=== PATIENT | male | born 1950 | race Caucasian/White ===

== ENCOUNTER → 2019-08-23 08:02 | Outpatient (CLI) | payer MEDICARE | END | disposition home or self-care (01) | LOC: D.HCCECHO 08:02 | PROVIDERS: ATTEND Internal Medicine Cardiovascular Disease | DX: I10 Essential (primary) hypertension (principal); I25.10 Atherosclerotic heart disease of native coronary artery without angina pectoris ==

== ENCOUNTER 2019-09-06 06:28 | Outpatient (CLI) | payer MEDICARE ==
[~2019-09-06] VITALS: Ht 172.7 cm; Wt 87.5 kg
--- NOTE | ~2019-09-06 | HEMODYNAMI ---
PATIENT:MARILYN BAUMAN MEDICAL RECORD: [id number] : 46 LOCATION:[facility] ADMISSION DATE: 09/06/19 Generatedon:09/06/20199:41 Patient name: MARILYN BAUMAN Patient #: [id number] SSN: [id number] : 1950 Date of study: 09/06/2019 Page: Of Hemodynamic Procedure Report Patient Data Patient Demographics Procedure consent was obtained First Name: MARILYN Gender: Male Last Name: MERNA : 1950 Patient #: [id number] Age: 69 year(s) Race: Unknown SSN: [id number] Additional ID: [id number] Contact details [address]: [address] [place], [place] [address] State: [place] City: [place] Zip code: [address] Past Medical History Allergies: No known allergies Admission Admission Data Admission Date: 09/06/2019 Admission Time: 6:28 Lab Results Lab Result Date: 09/06/2019 Lab Result Time: 0:00 Biochemistry Name Units Result Min Max BUN mg/dl 17 --(---*)-- 7 18 Creatinine mg/dl 1 --(--*-)-- 0.6 1.3 eGFR ml/min 78 *-(----)-- 90 120 NONAFRICAN CBC Name Units Result Min Max Hematocrit % 40.9 -*(----)-- 42 54 Hemoglobin g/dl 13.6 --(*---)-- 13.5 17.5 Procedure Procedure Types Cath Procedure Diagnostic Procedure LHC LH w/Coronaries Sedation Charges Moderate Sedation up to 30 minutes PCI Procedure Coronary Stent Coronary Stent Initial Procedure Description Procedure Date Procedure Date: 09/06/2019 Procedure Start Time: 9:06 Procedure End Time: 9:38 Procedure Staff Name Function See Schilling MD Performing Physician Krunal Lr RN Nurse Muriel Mack RT Monitor Asha Sarmiento RT Scrub Procedure Data Cath Procedure Fluoroscopy Diagnostic fluoroscopy Total fluoroscopy Time: 5.8 time: 5.8 min min Diagnostic fluoroscopy Total fluoroscopy dose: 910 dose: 910 mGy mGy Contrast Material Contrast Material Type Amount (ml) Isovue 300 97 Entry Location Entry Primary Successful Side Size Upsize Upsize Entry Closure Succes sful Closure Location (Fr) 1 (Fr) 2 (Fr) Remarks Device Remarks Femoral Right 5 Fr 6 Fr Exoseal artery Short Estimated blood loss: 10 ml Diagnostic catheters Device Type Used For End Catheter Placement MULTIPACK JL 4.0 5Fr Left Coronary catheter Angiography MULTIPACK 3DRC 5Fr Right Coronary catheter Angiography MULTIPACK Pigtail 5 Fr LV Angiography catheter Procedure Complications No complications Procedure Medications Medication Administration Route Dosage Oxygen etCO2 Nasal cannula 2 l/min Lidocaine 2% added to field 20 Heparin Flush Bag added to field 2 bags (1000units/500ml NS) 0.9% NaCl I.V. 100 ml/hr Versed I.V. 1 mg Fentanyl I.V. 50 mcg Versed I.V. 1 mg Fentanyl I.V. 50 mcg Heparin Bolus I.V. 8500 units Plavix P.O. 600 mg Hemodynamics Rest HGB: 13.6 (g/dl) Heart Rate: 65 (bpm) Pressure Samples Time Site Value (mmHg) Purpose Heart Use Rate(bpm) 9:16 LV 122/-5,7 Snapshot 67 9:17 AO 120/60(86) Pullback 63 9:17 LV 117/-1,8 Pullback 63 Gradients Valve Time Site 1 Site 2 Mean SEP/DFP Peak To Heart Use (mmHg) (sec/min) Peak Rate (mmHg) (bpm) Aortic 9:17 LV AO 0 3 0 63 117/-1,8 120/60(86) Calculations Valve P-P Mean Valve Index Valve Source Name Gradient Area Flow (cm2) Aortic 0 0 0 0 Snapshots Pre Cath Intra NCS Post Cath Vital Signs Time Heart Resp SPO2 etCO2 NIBP (mmHg) Rhythm Pain Sedation Rate (ipm) (%) (mmHg) Status Level (bpm) 8:54:23 69 15 98 0 145/70(129) NSR 0 (11) 10(A) , No pain 8:58:37 65 15 98 36.7 134/81(99) NSR 0 (11) 10(A) , No pain 9:02:51 61 16 97 0 118/81(97) NSR 0 (11) 10(A) , No pain 9:07:58 61 18 97 0 122/76(92) NSR 0 (11) 9(A) , No pain 9:12:10 62 11 95 34.4 136/78(98) NSR 0 (11) 9(A) , No pain 9:16:26 67 11 95 0 122/78(106) NSR 0 (11) 9(A) , No pain 9:20:40 64 13 98 16.4 127/74(90) NSR 0 (11) 9(A) , No pain 9:24:54 65 14 94 39.7 131/75(98) NSR 0 (11) 9(A) , No pain 9:29:10 64 10 93 0 147/76(125) NSR 0 (11) 10(A) , No pain 9:33:26 66 12 93 32.2 138/80(119) NSR 0 (11) 10(A) , No pain Medications Time Medication Route Dose Verified Delivered Reason Notes Effectiveness by by 8:53:21 Oxygen etCO2 2 See Buffie used for Nasal l/min Sohan Lr RN procedure cannula 8:53:27 Lidocaine 2% added 20ml See See for local to vial Sohan Schilling MD anesthetic field 8:53:33 Heparin Flush added 2 See See used for Bag to bags Sohan Schilling MD procedure (1000units/500ml field NS) 8:53:42 0.9% NaCl I.V. 100 See Buffie Per physician ml/hr Sohan Lr RN 9:03:15 Versed I.V. 1 mg See Buffie for sedation Sohan Lr RN 9:03:20 Fentanyl I.V. 50 See Buffie for sedation mcg Sohan Lr RN 9:10:04 Versed I.V. 1 mg See Buffie for sedation Sohan Lr RN 9:19:59 Fentanyl I.V. 50 See Buffie for sedation mcg Sohan Lr RN 9:21:07 Heparin Bolus I.V. 8500 See Buffie for verifi ed units Sohan Lr RN anticoagulation with dr schilling 9:38:10 Plavix P.O. 600 See Buffie for mg Sohan Lr RN antiplatelet therapy Procedure Log Time Note 8:38:10 Lab Result : BUN 17 mg/dl 8:38:10 Lab Result : Hemoglobin 13.6 g/dl 8:38:10 Lab Result : Hematocrit 40.9 % 8:38:10 Lab Result : Creatinine 1 mg/dl 8:38:10 Lab Result : eGFR NONAFRICAN 78 ml/min 8:38:25 Risk of Mortality: 0.1 8:38:29 Risk of blood transfusion: 0.5 8:38:34 Risk of PRABHJOT: 0.2 8:38:49 Stress Test: yes; abnormal INFERIORLY 8:38:55 Lab results completed and on chart. 8:39:19 Patient allergic to No known allergies 8:42:32 ACC Patient presents with Stable Angina CCS Anginal Class 3--Marked limitation of physical activity, angina occurs with ordinary activity.. 8:42:37 Procedure Status Elective Heart Cath (OP). 8:43:17 Krunal Lr RN sent for patient. Start room use. 8:43:20 Time tracking: Regular hours (M-F 7:00 - 5:00) 8:43:28 Plan of Care:Hemodynamics will remain stable., Cardiac rhythm will remain stable., Comfort level will be maintained., Respiratory function will remain adequate., Patient/ family verbilizes understanding of procedure., Procedure tolerated without complication., Recovers from procedure without complications.. 8:44:03 Diagnostic Cath Status : Elective 8:48:59 Patient received from Pre/Post Procedure Room to CCL 1 Alert and oriented. Tansferred to table in Supine position. 8:53:09 Vital chart was started 8:53:21 Oxygen 2 l/min etCO2 Nasal cannula was administered by Krunal Lr RN; used for procedure; Verbal order read back and verified. 8:53:27 Lidocaine 2% 20ml vial added to field was administered by See Schilling MD; for local anesthetic; Verbal order read back and verified. 8:53:33 Heparin Flush Bag (1000units/500ml NS) 2 bags added to field was administered by See Schilling MD; used for procedure; Verbal order read back and verified. 8:53:42 0.9% NaCl 100 ml/hr I.V. was administered by Krunal Lr RN; Per physician; Verbal order read back and verified. 8:56:59 Signed procedure consent form obtained from patient. 8:57:01 Warm blankets applied, and galilea hugger turned on for patient comfort. 8:57:02 Correct patient and procedure confirmed by team. 8:57:03 ECG and BP/O2 sat monitors applied to patient. 8:57:43 Baseline sample Acquired. 8:57:52 Rhythm: sinus rhythm 8:57:55 Full Disclosure recording started 8:57:56 8:58:05 H&P Date Dictated: 09/06/2019 H&P Addendum completed by physician on day of procedure. (MUST COMPLETE FOR ALL OUTPATIENTS), New H&P dictated by physician.. 8:58:07 Pre-procedure instructions explained to patient. 8:58:08 Pre-op teaching completed and patient verbalized understanding. 8:58:11 Family in patients room. 8:58:14 Patient NPO since Midnight. 8:58:25 Is the patient allergic to Iodine/contrast media? No. 8:58:30 Was the patient premedicated? Yes 8:58:35 Is patient on blood thinner?No 8:58:41 Patient diabetic? No. 8:58:45 ----Pre-sedation anethsthesia assessment.---- 8:59:03 Previous problem with sedation/anesthesia? No ? 8:59:10 Snore? Yes 8:59:20 Sleep apnea? No 8:59:31 Deviated septum? No 8:59:34 Opens mouth fully? Yes 8:59:37 Sticks out tongue? Yes 8:59:41 Airway obstruction? No ? 8:59:48 Dentures? Yes IN TIGHT 8:59:58 Right groin area was prepped with chlora-prep and draped in sterile fashion 9:00:01 Alarms reviewed by R. N. 9:00:02 Sharps counted by scrub and verified by R.N. 9:00:09 Use device set Femoral Dx 9:00:11 ACIST Syringe (70160) opened to sterile field. 9:00:12 Bag Decanter (2002S) opened to sterile field. 9:00:13 Medline Cath Pack ([id number]) opened to sterile field. 9:00:22 ACIST Hand Control (54590) opened to sterile field. 9:00:22 ACIST Manifold (69649) opened to sterile field. 9:00:24 DIAGNOSTIC Multipack 5Fr catheter set (MJ5409) opened to sterile field. 9:00:25 Tegaderm 4 x 4 (1626W) opened to sterile field. 9:00:30 SHEATH 5FR Sublette (XCM572) opened to sterile field. 9:00:31 EMERALD Guide Wire (878-167) opened to sterile field. 9:02:05 Pre procedure: right dorsailis pedis pulse 1+ Palpable, but thready & weak; easily obliterated 9:02:20 IV patent on arrival in left forearm with 0.9% NaCl at KVO. 9:02:27 Physician arrived 9:02:28 --------ALL STOP TIME OUT------ 9:02:29 Final Timeout: patient, procedure, and site verified with staff and physician. All members of the team are in agreement. 9:02:32 Right groin site verified by team. 9:02:38 Fire Safety Assessment: A--An alcohol-based skin anteseptic being used preoperatively., C--Open oxygen or nitrous oxide is being used., D--An ESU, laser, or fiber-optic light is being used. 9:02:43 Physical assessment completed. ASA score P 2 - A patient with mild systemic disease as per See Schilling MD. 9:02:49 2) 60-89 Mildly reduced kidney function, and other findings (as for stage 1) point to kidney disease. 9:02:54 Maximum allowable contrast dose (3.7 X eGFR X 0.75)216 ml. 9:03:02 Sedation plan: IV Moderate Sedation Medication:Versed, Fentanyl 9:03:15 Versed 1 mg I.V. was administered by Krunal Lr RN; for sedation; Verbal order read back and verified. 9:03:20 Fentanyl 50 mcg I.V. was administered by Krunal Lr RN; for sedation; Verbal order read back and verified. 9:03:57 Zero performed for pressure channel P1 9:06:12 Procedure started. 9:06:39 Local anesthetic to right femoral artery with Lidocaine 2% by See Schilling MD.INITIAL ACCESS ONLY 9:07:56 A 5 Fr sheath was inserted into the Right Femoral artery 9:09:42 A MULTIPACK JL 4.0 5Fr catheter was advanced over the wire and used for Left Coronary Angiography. 9:10:04 Versed 1 mg I.V. was administered by Krunal Lr RN; for sedation; Verbal order read back and verified. 9:10:41 LCA angiography performed. 9:10:45 Injector settings: Ml/sec: 3, Volume: 6, 9:12:57 Catheter removed. 9:13:05 A MULTIPACK 3DRC 5Fr catheter was advanced over the wire and used for Right Coronary Angiography. 9:14:17 RCA angiography performed. 9:14:34 Injector settings: Ml/sec: 3, Volume: 6, 9:14:58 Catheter removed. 9:15:15 A MULTIPACK Pigtail 5 Fr catheter was advanced over the wire and used for LV Angiography. 9:15:31 Injector settings: Ml/sec: 5, Volume: 15, 9:15:35 LV gram done using TOBIAS 9:16:16 LV hemodynamics recorded. 9:17:35 EF : 45 % 9:17:48 Catheter removed. 9:17:50 Proceeding to intervention. 9:18:41 Asahi Minamo 300cm wire opened to sterile field. 9:18:43 TUBING High Pressure Extension Tubing (Soahn) ([id number]) opened to sterile field. 9:18:44 INFLATOR Merit BasixCompak (MR4293) opened to sterile field. 9:18:45 SHEATH 6FR Sublette (VPT787) opened to sterile field. 9:19:05 Sheath upsized to a 6 Fr Short. 9:19:11 ACC Pre-intervention HIMANSHU Flow is 3. 9:19:29 Pre PCI Site: [place] pLAD has 90% stenosis. 9:19:41 GUIDE 6FR XBLAD 3.5 catheter ([id number]) opened to sterile field. 9:19:50 6 Fr XBLAD3.5 guide catheter was inserted over the wire 9:19:59 Fentanyl 50 mcg I.V. was administered by Krunal Lr RN; for sedation; Verbal order read back and verified. 9:20:43 [id number] wire advanced. 9:21:07 Heparin Bolus 8500 units I.V. was administered by Krunal Lr RN; for anticoagulation; verified with dr schilling Verbal order read back and verified. 9:24:24 Wire advanced across lesion. 9:27:53 Place stent Inflation Number: 1 A OSMANY OTW 3.0 x 12 stent ([id number]) was prepped and advanced across the Prox LAD . The stent was deployed at 14 DANICA for 0:30 (min:sec) . 9:29:37 Inflation number: 2 The stent balloon was then re-inflated across the Prox LAD to 16 DANICA for 0:00 (min:sec) . 9:31:02 Stent catheter was removed intact over wire. 9:31:05 ACC Post-intervention HIMANSHU Flow is 3. 9:31:16 Post PCI Site: [place] pLAD has 0% stenosis. 9:31:49 Wire removed. 9:31:50 Guide catheter removed. 9:32:00 EXOSEAL 6Fr (EX600) opened to sterile field. 9:32:18 Sheath removed intact; hemostasis achieved with Exoseal to the Right Femoral artery. 9:33:03 Procedure ended.(Physican Out) 9:33:37 Contrast amount:Isovue 300 97ml. 9:33:41 Maximum allowable dose exceeded? No. 9:33:52 Fluoroscopy time 05.80 minutes. 9:34:01 Flurop Dose total: 910 9:34:01 Fluoroscopy dose: 910 mGy 9:34:13 Dose Area Product 25080 mGy/cm. 9:34:15 Sharps counted by scrub and verified by R.N. 9:34:17 Insertion/operative site no bleeding no hematoma. 9:34:23 Post-op/insertion site Right Femoral artery dressed using a 4 x 4 and Tegaderm. 9:34:30 Post right femoral artery:stable 9:34:33 Post Procedure Pulses reassessed and unchanged 9:34:40 Post-procedure physical assessment completed. ASA score P 2 - A patient with mild systemic disease as per See Schilling MD. 9:34:45 Post procedure rhythm: unchanged. 9:34:49 Estimated blood loss: 10 ml 9:34:51 Post procedure instruction explained to patient.Patient verbalizes understanding. 9:34:53 Patient needs reinforcement of post procedure teaching. 9:35:23 Procedure type changed to Cath procedure, Diagnostic procedure, LHC, [facility] w/Coronaries, Sedation Charges, Moderate Sedation up to 30 minutes, PCI procedure, Coronary Stent, Coronary Stent Initial 9:35:26 Procedure and supply charges have been captured, reviewed, submitted and are correct. 9:36:08 Procedure Complication : No complications 9:36:11 Vital chart was stopped 9:36:15 [facility] Findings: MVD- PCI performed (see procedure note) 9:36:19 Operative report dictated upon procedure completion. 9:36:20 See physician's report for complete and final results. 9:36:22 Report given to Pre/Post Procedure Room. 9:36:27 Patient transfered to Pre/Post Procedure Room with Stretcher. 9:37:31 ACT drawn and resulted at out of range high seconds. (normal therapeutic range 180-240 seconds). 9:38:10 Plavix 600 mg P.O. was administered by Krunal Lr RN; for antiplatelet therapy; Verbal order read back and verified. 9:38:51 Procedure ended. 9:38:51 Full Disclosure recording stopped 9:39:00 ACC-PCI Only Patient was given prescriptions, or instructed by See Schilling MD to start/continue the following medications upon discharge: Plavix 9:39:02 End room use (Document Last) Intervention Summary Intervention Notes Time ActionType Lesion and Equipment Action# Pressure Duration Attributes Used 9:27:53 Place stent Prox LAD OSMANY OTW 3.0 1 14 00:30 x 12 stent ([id number]) 9:29:37 Reinflate Prox LAD OSMANY OTW 3.0 2 16 00:00 stent x 12 stent balloon ([id number]) Device Usage Item Name Manufacture Quantity Catalog Hospital Part Current Mini mal Lot# / Number Charge Number Stock Stock Serial# Code ACIST Syringe Acist 1 62574 038538 065541 086832 20 (66232) [employer] Bag Decanter Microtek 1 777553 45723 461237 5 () Medical Inc. Medline Cath Medline 1 [id number] 542001 92665 325147 5 Pack ([id number]) ACIST Hand Acist 1 98074 424289 888909 229904 5 Control Medical (89842) Modulus Inc ACIST Acist 1 09816 414265 724941 835066 5 WaveConnex Medical (48595) Systems Inc DIAGNOSTIC Cardinal 1 VY6481 264328 97169 580573 30 Multipack 5Fr Health catheter set (DU4489) Tegaderm 4 x 3M 1 1626W 393271 599532 607737 5 4 (1626W) SHEATH 5FR Terumo 1 PIG819 171831 942056 682500 5 Sublette (VIR187) EMERALD Guide Cardinal 1 502-455 222749 162059 762407 5 Wire Health (502-455) MULTIPACK JL Cardinal 1 833808 5 4.0 5Fr Health catheter MULTIPACK Cardinal 1 393222 5 3DRC 5Fr Health catheter MULTIPACK Cardinal 1 137508 5 Pigtail 5 Fr Health catheter [facility] Intecc 1 [id number] 132706 9578862 052483 0 300cm wire TUBING High Merit 1 [id number] 520437 33302 823042 10 Pressure Medical Extension Tubing (Sohan) ([id number]) INFLATOR Merit 1 YQ1327 899410 774945 355067 15 Merit Medical BasixCompak (RT9256) SHEATH 6FR Terumo 1 YBG844 501167 923332 965146 40 Sublette (ZWN517) GUIDE 6FR Cardinal 1 09508527 815930 338262 402557 10 XBLAD 3.5 Health catheter (66037445) OSMANY OTW 3.0 Medtronic 1 [id number] 572483 9489871 858023 5 [id number] x 12 stent ([id number]) EXOSEAL 6Fr Cardinal 1 EX600 865843 643842 827999 10 (EX600) Health Signature Audit [place] Stage Time Signature Unsigned Intra-Procedure 09/06/2019 Muriel 9:40:13 AM Frederick RT(R) (CV) Intra-Procedure 09/06/2019 Krunal Lr RN 9:40:44 AM Intra-Procedure 09/06/2019 See Schilling MD 9:41:16 AM [facility] [address] [place] [address]
[~2019-09-06 06:28] MED LIST: BAYER CHEWABLE81 MG PO; COZAAR50 MG PO; LIPITOR10 MG PO
[2019-09-06 07:07] VITALS: BP 117/68; Ht 172.7 cm; Wt 87.5 kg
[2019-09-06 07:42] LABS: ALT (SGPT) 28 U/L (10-68); CALC OSMOLALITY 276 mosm/kg (275-300); CALCIUM 8.8 mg/dL (8.5-10.1); CARBON DIOXIDE 26.4 mmol/L (21.0-32.0); CHLORIDE - SERUM 103 mmol/L (98-107); CHOL - HDL RATIO 4.2 ratio (2.3-4.9); CHOLESTEROL, TOTAL 144 mg/dL (0-200); GLUCOSE 110 mg/dL (74-106); HDL CHOLESTEROL 34 mg/dL (32-96); LDL CHOLESTEROL 79 mg/dL (0-100); LDL-HDL RATIO 2.3 ratio (1.5-3.5); POTASSIUM - SERUM 4.1 mmol/L (3.5-5.1); SODIUM 137 mmol/L (136-145); TRIGLYCERIDE 159 mg/dL (30-200); UREA NITROGEN 17 mg/dL (7-18); eGFR NON AFRICAN AMERICAN 78 mL/min (90-120)
[2019-09-06 08:09] LABS: BASOPHILS 0.7 % (0-2); EOSINOPHILS 3.1 % (0-7); HEMATOCRIT 40.9 % (42.0-54.0); HEMOGLOBIN 13.6 g/dL (13.5-17.5); IMMATURE GRANULOCYTES 3.3 % (0-5); LYMPHOCYTES 27.9 % (15-50); MCH 31.9 pg (26.0-34.0); MCHC 33.3 g/dL (31.0-37.0); MCV 95.8 fL (80.0-100.0); MEAN PLATELET VOLUME 9.9 fL (7.4-10.4); MONOCYTES 7.6 % (2-11); NEUTROPHILS 57.4 % (40-80); PLATELET COUNT 303 10x3/uL (130-400); RBC 4.27 10x6/uL (4.20-6.10); RDW 13.1 % (11.5-14.5)
--- NOTE | 2019-09-06 09:50 | NUR ---
REC TO ROOM VIA STRETCHER FROM ALCOHOL RUBBER. MONITORING INITIATED. R GROIN TEGADERM AND 4X4 CLEAN DRY INTACT. GROIN SOFT, NO S/S BLEEDING OR HEMATOMA. DR ZABALA PRECEDED PT TO ROOM TO SPEAK W FAMILY.
[2019-09-06] MEDS ORDERED: PLAVIX75 MG PO (10:01)
--- NOTE | 2019-09-06 10:30 | NUR ---
R GROIN CDI, NO S/S BLEEDING OR HEMATOMA. BP 129/74, SR 62, SAT 100% RR 12.
--- NOTE | 2019-09-06 11:00 | NUR ---
R GROIN SOFT, NO S/S BLEEDING OR HEMATOMA. PPP. RUTH ANN SIPS OF WATER. INSTRUCTED TO KEEP HEAD ON PILLOW AND LEG STILL AND STRAIGHT FOR REMAINDER OF RECOVERY TIME. VERBALIZES UNDERSTANDING.
--- NOTE | 2019-09-06 11:30 | NUR ---
R GROIN SOFT, NO S/S BLEEDING OR HEMATOMA. PPP. BP 113/63, SB 56.
--- NOTE | 2019-09-06 12:00 | NUR ---
R GROIN SOFT, NO S/S BLEEDING OR HEMATOMA. PPP. BP 111/69, SB 55, RR 12, SAT 100% RA.
--- NOTE | 2019-09-06 12:30 | NUR ---
R GROIN REMAINS SOFT, NONTENDER. NO S/S BLEEDING OR HEMATOMA. PPP. BP 109/66, SR 61.
--- NOTE | 2019-09-06 13:00 | NUR ---
R GROIN CDI, SOFT. NO S/S BLEEDING OR HEMATOMA. HOB RAISED FOR PT COMFORT. SANDWICH AND SODA PROVIDED.
--- NOTE | 2019-09-06 13:30 | NUR ---
REQ ICE CREAM. R GROIN REMAINS SOFT, NO S/S BLEEDING OR HEMATOMA.
--- NOTE | 2019-09-06 13:45 | NUR ---
IV DC, TIP INTACT. R GROIN REMAINS SOFT, NO S/S BLEEDING OR HEMATOMA. MONITORING DC. DRESSING W FAMILY HELP./
--- NOTE | 2019-09-06 13:50 | NUR ---
AMBULATED TO REST ROOM INDEPENDENTLY TO VOID BLADDER. BACK IN ROOM, DC INSTRUCTIONS REVIEWED W PT AND FAMILY. HAS PRESCRIPTION FOR PLAVIX AND VERBALIZES UNDERSTANDING TO FILL RX AND BEGIN TAKING TOMORROW.
--- NOTE | 2019-09-06 14:05 | NUR ---
DC HOME VIA WHEELCHAIR TO PRIVATE VEHICLE WITH FAMILY. PT HAS ALL BELONGINGS.
== END 2019-09-06 14:00 | disposition home or self-care (01) ==
LOC: D.CATH 06:28
PROVIDERS: ATTEND Internal Medicine Cardiovascular Disease
DX: I25.119 Atherosclerotic heart disease of native coronary artery with unspecified angina pectoris (principal); I10 Essential (primary) hypertension; E78.5 Hyperlipidemia, unspecified
CPT/HCPCS: 93458; C9600

== ENCOUNTER → 2020-11-10 09:05 | Outpatient (CLI) | payer MEDICARE ==
[2019-09-06 07:07] VITALS: BMI 29.3
[~2020-11-10 09:05] MED LIST changes: +PLAVIX75 MG PO
== END | disposition home or self-care (01) ==
LOC: D.HCCARDIO 09:05
PROVIDERS: ATTEND Internal Medicine Cardiovascular Disease
DX: I25.10 Atherosclerotic heart disease of native coronary artery without angina pectoris (principal)

== ENCOUNTER 2020-11-13 07:26 | Day surgery (SDC) | payer MEDICARE ==
[~2020-11-13] VITALS: Ht 172.7 cm; Wt 93.8 kg
--- NOTE | ~2020-11-13 | HEMODYNAMI ---
PATIENT:MARILYN BAUMAN MEDICAL RECORD: [id number] : 46 LOCATION:[facility] ADMISSION DATE: 11/13/20 Generatedon:110:50 Patient name: MARILYN BAUMAN Patient #: [id number] SSN: [id number] : 1950 Date of study: 11/13/2020 Page: Of Hemodynamic Procedure Report Patient Data Patient Demographics Procedure consent was obtained First Name: MARILYN Gender: Male Last Name: MERNA : 1950 Patient #: [id number] Age: 70 year(s) Race: SSN: [id number] Additional ID: [id number] Contact details [address]: [address] [place] [address] State: [place] City: [place] Zip code: [address] Past Medical History Performed procedures and imaging results Date Procedure Procedure Results Comments 11/10/2020 Stress testing Positive->Intermediate with SPECT MPI risk Allergies: No known allergies Admission Admission Data Admission Date: 11/13/2020 Admission Time: 7:26 Admit Source: Other Lab Results Lab Result Date: 11/13/2020 Lab Result Time: 0:00 Biochemistry Name Units Result Min Max BUN mg/dl 23 --(----)-* 7 18 Creatinine mg/dl 1 --(--*-)-- 0.6 1.3 eGFR ml/min 78 *-(----)-- 90 120 NONAFRICAN CBC Name Units Result Min Max Hematocrit % 43.5 --(*---)-- 42 54 Hemoglobin g/dl 15 --(-*--)-- 13.5 17.5 Procedure Procedure Types Cath Procedure Diagnostic Procedure LHC LH w/Coronaries Sedation Charges Moderate Sedation 25-39 minutes Procedure Description Procedure Date Procedure Date: 11/13/2020 Procedure Start Time: 10:19 Procedure End Time: 10:47 Procedure Staff Name Function See Parry MD Performing Physician Georgette Holland RT Monitor Zunilda Daniel RT Scrub Max Hall RN Nurse Procedure Data Cath Procedure Fluoroscopy Diagnostic fluoroscopy Total fluoroscopy Time: 4.4 time: 4.4 min min Diagnostic fluoroscopy Total fluoroscopy dose: 581 dose: 581 mGy mGy Contrast Material Contrast Material Type Amount (ml) Visipaque 320 72 Entry Location Entry Primary Successful Side Size Upsize Upsize Entry Closure Succes sful Closure Location (Fr) 1 (Fr) 2 (Fr) Remarks Device Remarks Femoral Right 5 Fr 6 Fr Exoseal artery Short Estimated blood loss: 5 ml Diagnostic catheters Device Type Used For End Catheter Placement MULTIPACK JL 4.0 5Fr Procedure catheter MULTIPACK 3DRC 5Fr Procedure catheter MULTIPACK Pigtail 5 Fr Procedure catheter Procedure Complications No complications Procedure Medications Medication Administration Route Dosage 0.9% NaCl I.V. 100 ml/hr Oxygen etCO2 Nasal cannula 3 l/min Heparin Flush Bag added to field 2 bags (1000units/500ml NS) Lidocaine 2% added to field 20 Versed I.V. 1 mg Fentanyl I.V. 50 mcg Versed I.V. 0.5 mg Versed I.V. 0.5 mg Heparin Bolus I.V. 9000 units Hemodynamics Rest HGB: 15 (g/dl) Heart Rate: 62 (bpm) Pressure Samples Time Site Value (mmHg) Purpose Heart Use Rate(bpm) 10:29 LV 138/-4,-1 Snapshot 67 Gradients Valve Time Site Site Mean SEP/DFP Peak To Heart Use 1 2 (mmHg) (sec/min) Peak Rate (mmHg) (bpm) Aortic 10:30 LV AO 58 Snapshots Pre Cath Intra NCS Post Cath Vital Signs Time Heart Resp SPO2 etCO2 NIBP (mmHg) Rhythm Pain Sedation Rate (ipm) (%) (mmHg) Status Level (bpm) 9:59:00 60 25 30 164/94(119) NSR 0 (11) 10(A) , No pain 10:03:22 60 13 36.8 166/86(136) NSR 0 (11) 10(A) , No pain 10:07:40 59 15 100 35.3 159/94(121) SB 0 (11) 10(A) , No pain 10:12:00 55 12 99 0 162/89(112) SB 0 (11) 9(A) , No pain 10:16:20 58 11 94 15 160/99(114) SB 0 (11) 9(A) , No pain 10:21:42 48 11 96 42.8 145/74(113) SB 0 (11) 9(A) , No pain 10:26:00 59 11 97 24.8 164/89(118) NSR 0 (11) 9(A) , No pain 10:30:24 57 13 98 15.7 156/92(126) NSR 0 (11) 9(A) , No pain 10:34:42 58 13 99 0 148/87(121) NSR 0 (11) 9(A) , No pain 10:39:02 59 13 95 31.5 155/86(130) NSR 0 (11) 9(A) , No pain 10:43:22 56 13 94 30 155/78(114) NSR 0 (11) 9(A) , No pain 10:47:47 51 12 100 21 151/86(106) NSR 0 (11) 10(A) , No pain Medications Time Medication Route Dose Verified Delivered Reason Notes Effectiveness by by 9:58:20 0.9% NaCl I.V. 100 See Max used for ml/hr Sohan Hall special procedure tech 9:58:30 Oxygen etCO2 3 See Max used for Nasal l/min Sohan Hall RN procedure cannula 9:58:40 Heparin Flush added 2 See Max used for Bag to bags Sohan Hall RN procedure (1000units/500ml field NS) 9:58:50 Lidocaine 2% added 20ml See Max for local to vial Sohan Hall RN anesthetic field 10:09:06 Versed I.V. 1 mg See Max for sedation Sohan Hall RN 10:09:14 Fentanyl I.V. 50 See Max for sedation mcg Sohan Hall RN 10:21:46 Versed I.V. 0.5 See Max for sedation mg Sohan Hall RN 10:33:22 Versed I.V. 0.5 See Max for sedation mg Sohan Hall RN 10:34:03 Heparin Bolus I.V. 9000 See Max for units Sohan Hall RN anticoagulation Procedure Log Time Note 9:33:56 Diagnostic Cath Status : Elective 9:48:00 Max Hall RN sent for patient. Start room use. 9:49:37 Informed consent obtained and on chart 9:49:54 Admit Source: Other 9:49:56 ACC Patient presents with Stable Angina CCS Anginal Class 2--Slight limitation of ordinary activity. 9:49:59 Procedure Status Elective Heart Cath (OP). 9:50:01 Time tracking: Regular hours (M-F 7:00 - 5:00) 9:50:05 Plan of Care:Hemodynamics will remain stable., Cardiac rhythm will remain stable., Comfort level will be maintained., Respiratory function will remain adequate., Patient/ family verbilizes understanding of procedure., Procedure tolerated without complication., Recovers from procedure without complications.. 9:50:08 Pre-procedure instructions explained to patient. 9:50:08 Pre-op teaching completed and patient verbalized understanding. 9:50:16 H&P Date Dictated: 11/03/2020 Within 30 days and on chart.. 9:50:18 Family in waiting room. 9:50:19 Patient NPO since Midnight. 9:50:24 Alarms reviewed by R. N. 9:50:25 Sharps counted by scrub and verified by R.N. 9:52:06 Lab Result : Hemoglobin 15 g/dl 9:52:06 Lab Result : Hematocrit 43.5 % 9:52:06 Lab Result : BUN 23 mg/dl 9:52:06 Lab Result : Creatinine 1 mg/dl 9:52:06 Lab Result : eGFR NONAFRICAN 78 ml/min 9:52:52 Lab results completed and on chart. 9:53:25 Stress Test: yes; abnormal ANTERIOR, APICAL 9:53:32 Patient received from Pre/Post Procedure Room to CCL 1 Alert and oriented. Tansferred to table in Supine position. 9:53:34 Warm blankets applied, and galilea hugger turned on for patient comfort. 9:53:34 Correct patient and procedure confirmed by team. 9:53:35 ECG and BP/O2 sat monitors applied to patient. 9:53:36 Full Disclosure recording started 9:53:43 Patient allergic to No known allergies 9:54:00 Is the patient allergic to Iodine/contrast media? No. 9:54:01 Was the patient premedicated? Yes 9:54:02 Is patient on blood thinner?No 9:54:03 Patient diabetic? No. 9:54:05 If diabetic: On Metformin? N/A 9:54:07 ----Pre-sedation anethsthesia assessment.---- 9:54:10 Previous problem with sedation/anesthesia? No ? 9:57:49 Vital chart was started 9:58:20 0.9% NaCl 100 ml/hr I.V. was administered by Max Hall RN; used for procedure; Verbal order read back and verified. 9:58:30 Oxygen 3 l/min etCO2 Nasal cannula was administered by Max Hall RN; used for procedure; Verbal order read back and verified. 9:58:40 Heparin Flush Bag (1000units/500ml NS) 2 bags added to field was administered by Max Hall RN; used for procedure; Verbal order read back and verified. 9:58:50 Lidocaine 2% 20ml vial added to field was administered by Max Hall RN; for local anesthetic; Verbal order read back and verified. 10:03:41 Snore? Yes 10:03:42 Sleep apnea? No 10:03:43 Deviated septum? No 10:03:44 Opens mouth fully? Yes 10:03:45 Sticks out tongue? Yes 10:03:47 Airway obstruction? No ? 10:03:50 Dentures? Yes ? 10:03:54 Baseline sample Acquired. 10:03:57 Rhythm: sinus rhythm 10:04:06 Pre procedure: right dorsailis pedis pulse 2+ Normal; easily identifiable; not easily obliterated 10:04:08 Patient pain scale 0/10 ?. 10:04:14 IV patent on arrival in left antecubital with 0.9% NaCl at O. 10:04:20 Right groin area was prepped with chlora-prep and draped in sterile fashion 10:04:26 Use device set Femoral Dx 10:04:28 ACIST Syringe (03122) opened to sterile field. 10:04:28 Bag Decanter () opened to sterile field. 10:04:29 Medline Cath Pack ([id number]) opened to sterile field. 10:04:30 ACIST Hand Control (52238) opened to sterile field. 10:04:31 ACIST Manifold (09114) opened to sterile field. 10:04:31 DIAGNOSTIC Multipack 5Fr catheter set ([id number]) opened to sterile field. 10:04:33 SHEATH 5FR Blue River (QAR900) opened to sterile field. 10:04:33 EMERALD Guide Wire (850-273) opened to sterile field. 10:04:34 Tegaderm 4 x 4 (1626W) opened to sterile field. 10:08:37 --------ALL STOP TIME OUT------ 10:08:38 Final Timeout: patient, procedure, and site verified with staff and physician. All members of the team are in agreement. 10:08:40 Right groin site verified by team. 10:08:44 Fire Safety Assessment: A--An alcohol-based skin anteseptic being used preoperatively., C--Open oxygen or nitrous oxide is being used., D--An ESU, laser, or fiber-optic light is being used. 10:08:48 Physical assessment completed. ASA score P 2 - A patient with mild systemic disease as per See Parry MD. 10:08:52 2) 60-89 Mildly reduced kidney function, and other findings (as for stage 1) point to kidney disease. 10:09:06 Versed 1 mg I.V. was administered by Max Hall RN; for sedation; Verbal order read back and verified. 10:09:10 Maximum allowable contrast dose (3.7 X eGFR X 0.75)216 ml. 10:09:14 Fentanyl 50 mcg I.V. was administered by Max Hall RN; for sedation; Verbal order read back and verified. 10:09:14 Sedation plan: IV Moderate Sedation Medication:Versed, Fentanyl 10:17:27 Procedure started. 10:19:36 Local anesthetic to right femoral artery with Lidocaine 2% by See Parry MD.INITIAL ACCESS ONLY 10:21:31 J WIRE INSERTED. 10:21:40 A 5 Fr sheath was inserted into the Right Femoral artery 10:21:46 Versed 0.5 mg I.V. was administered by Max Hall RN; for sedation; Verbal order read back and verified. 10:22:23 A MULTIPACK JL 4.0 5Fr catheter was advanced over the wire and used for Procedure. 10:23:17 LCA angiography performed. 10:23:19 Injector settings: Ml/sec: 3, Volume: 6, 10:24:17 Catheter exchanged over wire. 10:26:05 A MULTIPACK 3DRC 5Fr catheter was advanced over the wire and used for Procedure. 10:26:08 RCA angiography performed. 10:26:10 Injector settings: Ml/sec: 3, Volume: 6, 10::57 Catheter exchanged over wire. 10:28:32 A MULTIPACK Pigtail 5 Fr catheter was advanced over the wire and used for Procedure. 10:29:16 LV gram done using TOBIAS 10:29:36 Injector settings: Ml/sec: 5, Volume: 15, 10:29:38 LV hemodynamics recorded. 10:29:50 EF : 45 % 10:30:02 Catheter removed. 10:30:02 Proceeding to intervention. 10:30:06 Use device set Lifestyle Air PCI 10:31:10 BMW 300cm Starr 2 J wire ([id number]) opened to sterile field. 10:31:16 TUBING High Pressure Extension Tubing (Parry) ([id number]) opened to sterile field. 10:31:20 INFLATOR Merit BasixCompak (YO1722) opened to sterile field. 10:31:24 SHEATH 6FR Blue River (BVS868) opened to sterile field. 10:31:31 Sheath upsized to a 6 Fr Short. 10:31:39 GUIDE 6FR XBLAD 3.5 catheter ([id number]) opened to sterile field. 10:31:47 6 Fr XBLAD 3.5 guide catheter was inserted over the wire 10:32:15 ACC Pre-intervention HIMANSHU Flow is 1. 10:33:22 Versed 0.5 mg I.V. was administered by Max Hall RN; for sedation; Verbal order read back and verified. 10:34:03 Heparin Bolus 9000 units I.V. was administered by Max Hall RN; for anticoagulation; Verbal order read back and verified. 10:38:37 Catheter removed. 10:38:46 5 Fr 3DRC guide catheter was inserted over the wire 10:40:08 RCA angiography performed. 10:40:11 Injector settings: Ml/sec: 3, Volume: 6, 10:41:55 Catheter removed. 10:41:58 EXOSEAL 6Fr (EX600) opened to sterile field. 10:42:15 Sheath removed intact; hemostasis achieved with Exoseal to the Right Femoral artery. 10:42:22 Fluoroscopy time 04.40 minutes. 10:42:27 Fluoroscopy dose: 581 mGy 10:42:27 Flurop Dose total: 581 10:42:33 Dose Area Product 15266 mGy/cm. 10:43:05 Contrast amount:Visipaque 320 72ml. 10:43:11 Procedure ended.(Physican Out) 10:43:23 Maximum allowable dose exceeded? No. 10:43:24 Sharps counted by scrub and verified by R.N. 10:43:29 Post-op/insertion site Right Femoral artery dressed using a 4 x 4 and Tegaderm. 10:43:34 Post right femoral artery:stable, soft, clean and dry 10:43:35 Post Procedure Pulses reassessed and unchanged 10:43:37 Post procedure: right dorsailis pedis pulse 1+ Palpable, but thready & weak; easily obliterated. 10:43:40 Post-procedure physical assessment completed. ASA score P 2 - A patient with mild systemic disease as per See Parry MD. 10:43:43 Post procedure rhythm: unchanged. 10:43:52 Estimated blood loss: 5 ml 10:43:54 Post procedure instruction explained to patient.Patient verbalizes understanding. 10:43:55 Patient needs reinforcement of post procedure teaching. 10:45:08 Procedure type changed to Cath procedure, Diagnostic procedure, LHC, [facility] w/Coronaries, Sedation Charges, Moderate Sedation 25-39 minutes 10:47:05 Procedure and supply charges have been captured, reviewed, submitted and are correct. 10:47:09 Procedure Complication : No complications 10:47:20 [facility] Findings: MVD- CABG consult 10:47:22 Operative report dictated upon procedure completion. 10:47:22 See physician's report for complete and final results. 10:47:25 Report given to Pre/Post Procedure Room. 10:47:29 Patient transfered to Pre/Post Procedure Room with Stretcher. 10:47:32 Procedure ended. 10:47:32 Full Disclosure recording stopped 10:47:42 End room use (Document Last) 10:47:45 Vital chart was stopped 10:49:32 ACT drawn and resulted at 301 seconds. (normal therapeutic range 180-240 seconds). Device Usage Item Name Manufacture Quantity Catalog Hospital Part Current Minimal L ot# / Number Charge Number Stock Stock Serial# Code [facility] 1 91736 613158 288830 890194 20 Syringe Medical (10228) Systems Inc Bag Microtek 1 2001S 197373 68193 543607 5 Decanter Medical Inc. () Medline Medline 1 [id number] 536568 93260 388716 5 Cath Pack ([id number]) ACIST Hand Acist 1 41346 738398 832731 562377 5 Control Medical (53644) Systems Inc ACIST Acist 1 63216 881807 762299 770466 5 Manifold Medical (77365) Systems Inc DIAGNOSTIC Cardinal 1 DW6101 139923 21211 847226 30 Multipack SunFunder 5Fr catheter set (QP4718) SHEATH 5FR Terumo 1 AJV449 876878 324004 470081 5 Blue River (CGN035) EMERALD Cardinal 1 502-455 815491 248408 037311 5 Guide Wire [facility] (502-455) Tegaderm 4 3M 1 1626W 401182 824541 258554 5 x 4 (1626W) MULTIPACK Cardinal 1 407373 5 JL 4.0 5Fr Health catheter MULTIPACK Cardinal 1 041368 5 3DRC 5Fr Health catheter MULTIPACK Cardinal 1 909889 5 Pigtail 5 Health Fr catheter BMW 300cm Neely 1 [id number] 157135 012561 574873 5 Starr 2 Vascular J wire (9585368O) TUBING High Merit 1 SU5563S 345658 24766 906168 10 Pressure Medical Extension Tubing (Parry) (ZJ1490W) INFLATOR Merit 1 FU9555 268292 619815 431921 15 [facility] Medical BasixCompak (OA3653) SHEATH 6FR Terumo 1 XHS988 396642 877350 293012 40 Blue River (JDT755) GUIDE 6FR Cardinal 1 [id number] 362458 106136 131696 10 XBLAD 3.5 Health catheter (69991919) EXOSEAL 6Fr Cardinal 1 EX600 252987 641406 536493 10 (EX600) Health Signature Audit [place] Stage Time Signature Unsigned Intra-Procedure 11/13/2020 Georgette Holland 10:48:11 AM RT(R) Intra-Procedure 11/13/2020 Georgette Holland 10:48:43 AM RT(R) Intra-Procedure 11/13/2020 Max Hall RN 10:50:37 AM Intra-Procedure 11/13/2020 See Parry MD 10:50:51 AM [facility] [address] [place] [address]
[2020-11-13 09:25] VITALS: BP 158/89; Ht 172.7 cm; Wt 93.8 kg
[2020-11-13 09:32] LABS: BASOPHILS 0.8 % (0-2); EOSINOPHILS 3.9 % (0-7); HEMATOCRIT 43.5 % (42.0-54.0); LYMPHOCYTES 27.8 % (15-50); MCHC 34.5 g/dL (31.0-37.0); MCV 92.7 fL (80.0-100.0); MEAN PLATELET VOLUME 8.3 fL (7.4-10.4); MONOCYTES 8.9 % (2-11); NEUTROPHILS 58.6 % (40-80); RDW 13.1 % (11.5-14.5); WBC 5.8 10x3/uL (4.8-10.8)
[2020-11-13 09:44] LABS: PLATELET COUNT 231 10x3/uL (130-400)
[2020-11-13 09:45] LABS: ALT (SGPT) 30 U/L (10-68); CALC OSMOLALITY 279 mosm/kg (275-300); CALCIUM 9.1 mg/dL (8.5-10.1); CARBON DIOXIDE 26.8 mmol/L (21.0-32.0); CHLORIDE - SERUM 103 mmol/L (98-107); CHOL - HDL RATIO 3.7 ratio (2.3-4.9); CHOLESTEROL, TOTAL 126 mg/dL (0-200); GLUCOSE 107 mg/dL (74-106); HDL CHOLESTEROL 34 mg/dL (32-96); LDL CHOLESTEROL 65 mg/dL (0-100); LDL-HDL RATIO 1.9 ratio (1.5-3.5); POTASSIUM - SERUM 4.2 mmol/L (3.5-5.1); SODIUM 138 mmol/L (136-145); TRIGLYCERIDE 138 mg/dL (30-200); UREA NITROGEN 23 mg/dL (7-18); eGFR NON AFRICAN AMERICAN 78 mL/min (90-120)
--- NOTE | 2020-11-13 10:58 | NUR ---
PT ARRIVED BY STRETCHER. PLACED ON MONITORS. SUPINE POSITION. FAMILY AT BEDSIDE. ASSESSMENT COMPLETED. VSS.
--- NOTE | 2020-11-13 11:15 | NUR ---
PT RESTING COMFORTABLY. VSS AT THIS TIME. CALL LIGHT WITHIN REACH. RIGHT GROIN DRESSING C/D/I. NO S/S OF HEMATOMA NOTED. FAMILY AT BEDSIDE. DR. ZABALA ROUNDED AND SPOKE WITH PT'S AT BEDSIDE.
--- NOTE | 2020-11-13 11:45 | NUR ---
PT RESTING COMFORTABLY. VSS. CALL LIGHT WITHIN REACH. RIGHT GROIN DRESSING C/D/I. NO S/S OF HEMATOMA NOTED. NO NEEDS AT THIS TIME. DENIES NAUSEA/PAIN.
--- NOTE | 2020-11-13 11:57 | NUR ---
PT VOIDED 500cc OF CLEAR YELLOW URINE IN URINAL WITHOUT DIFFICULTY. RIGHT GROIN DRESSING C/D/I. NO S/S OF HEMATOMA NOTED. CALL LIGHT WITHIN REACH. VSS AT THIS TIME.
--- NOTE | 2020-11-13 12:30 | NUR ---
PT RESTING COMFORTABLY. VSS. RIGHT GROIN DRESSING C/D/I. NO S/S OF HEMATOMA NOTED. CALL LIGHT WITHIN REACH. FAMILY AT BEDSIDE. NO NEEDS AT THIS TIME. DENIES NAUSEA/PAIN.
--- NOTE | 2020-11-13 13:00 | NUR ---
RIGHT GROIN DRESSING C/D/I. NO S/S OF HEMATOMA NOTED. CALL LIGHT WITHIN REACH. RIGHT PEDAL PULSE PALPABLE. PT DENIES NAUSEA/PAIN. TOLERATING SIPS OF WATER AT THIS TIME. NO OTHER NEEDS.
--- NOTE | 2020-11-13 13:45 | NUR ---
RIGHT GROIN DRESSING C/D/I. NO S/S OF HEMATOMA NOTED. HEAD OF BED INC TO 3O DEGREES. TOLERATED WELL. SET UP WITH DRINK AND SANDWICH TRAY. DR. WELLS AT BEDSIDE TO SPEAK WITH PT AND PT'S REGARDING PLAN OF CARE.
--- NOTE | 2020-11-13 14:00 | NUR ---
PT'S GIVEN PRE HEART SURGERY BOOKLET AND CARD WITH DR. WELLS'S OFFICE INFORMATION.
--- NOTE | 2020-11-13 14:35 | NUR ---
RIGHT GROIN DRESSING C/D/I. NO S/S OF HEMATOMA NOTED. CALL LIGHT WITHIN REACH. VSS AT THIS TIME. PIV D/C'D WITH CATH TIP INTACT. TOLERATED WELL. PT INSTRUCTED TO GET UP AND DRESSED AT THIS TIME. NO ASSISTANCE NEEDED.
--- NOTE | 2020-11-13 15:00 | NUR ---
PT AMBULATED TO RESTROOM AND VOIDED WITHOUT DIFFICULTY. STEADY GAIT NOTED. DISCUSSED DISCHARGE INSTRUCTIONS WITH PT AND PT'S . THEY VOICED UNDERSTANDING. PT TAKEN OUT TO VEHICLE BY WHEELCHAIR. NO S/S OF DISTRESS NOTED. ALL BELONGINGS AND PAPERWORK IN HAND. RIGHT GROIN DRESSING C/D/I. NO S/S OF HEMATOMA NOTED.
== END 2020-11-13 15:00 | disposition home or self-care (01) ==
LOC: D.CATH 07:26
PROVIDERS: ATTEND Internal Medicine Cardiovascular Disease
DX: I25.118 Atherosclerotic heart disease of native coronary artery with other forms of angina pectoris (principal); R94.39 Abnormal result of other cardiovascular function study; R06.00 Dyspnea, unspecified; R07.89 Other chest pain; I10 Essential (primary) hypertension

== ENCOUNTER 2020-11-14 08:32 | Inpatient (IN) | payer MEDICARE ==
[~2020-11-14] VITALS: Ht 172.7 cm; Wt 98.2 kg
[2020-11-18] MEDS ORDERED: MULTI-DAY VITAM1 TAB PO (11:13)
[2020-11-18] MEDS ORDERED: CLARITIN 10 MG10 MG PO (11:13)
[2020-11-18] MEDS ORDERED: NIACIN500 MG PO (11:13)
[2020-11-18] MEDS ORDERED: OSTEO BI-FLEX1 EAC1 PO (11:13)
[2020-11-18] MEDS ORDERED: MERIBIN5 MG PO (11:17)
[2020-11-18] MEDS ORDERED: CIALIS PO (11:18)
[2020-11-18 12:44] LABS: BASOPHILS 0.6 % (0-2); EOSINOPHILS 2.7 % (0-7); HEMATOCRIT 46.3 % (42.0-54.0); HEMOGLOBIN 15.7 g/dL (13.5-17.5); LYMPHOCYTES 23.1 % (15-50); MCH 31.9 pg (26.0-34.0); MCV 93.6 fL (80.0-100.0); MEAN PLATELET VOLUME 8.3 fL (7.4-10.4); MONOCYTES 7.9 % (2-11); NEUTROPHILS 65.7 % (40-80); PLATELET COUNT 250 10x3/uL (130-400); RBC 4.94 10x6/uL (4.20-6.10); RDW 13.2 % (11.5-14.5); WBC 7.1 10x3/uL (4.8-10.8)
[2020-11-18 12:45] LABS: BILIRUBIN NEGATIVE (NEGATIVE); KETONE NEGATIVE (NEGATIVE); NITRITE NEGATIVE (NEGATIVE); UROBILINOGEN NORMAL mg/dL (< 2)
[2020-11-18 12:58] LABS: APTT 27.9 SECONDS (22.8-39.4); INR 1.14 (0.85-1.17); PROTIME 13.5 SECONDS (11.6-15.0)
[2020-11-18 13:17] LABS: ALBUMIN 4.8 g/dL (3.4-5.0); ALKALINE PHOSPHATASE 147 U/L (30-120); ALT (SGPT) 28 U/L (10-68); BILIRUBIN - TOTAL 0.35 mg/dL (0.2-1.3); CALC OSMOLALITY 280 mosm/kg (275-300); CALCIUM 9.2 mg/dL (8.5-10.1); CARBON DIOXIDE 24.7 mmol/L (21.0-32.0); CHLORIDE - SERUM 103 mmol/L (98-107); CHOLESTEROL, TOTAL 154 mg/dL (0-200); GLUCOSE 95 mg/dL (74-106); PHOSPHOROUS 3.6 mg/dL (2.5-4.9); POTASSIUM - SERUM 4.3 mmol/L (3.5-5.1); PRO BNP 28 pg/mL (0-125); PROTEIN - SERUM 8.2 g/dL (6.4-8.2); SODIUM 139 mmol/L (136-145); T4 THYROXIN - FREE 0.89 ng/dL (0.76-1.46); THYROID STIMULATING HORMONE 1.35 uIU/mL (0.36-3.74); UREA NITROGEN 22 mg/dL (7-18); URIC ACID 5.5 mg/dL (2.6-7.2); eGFR NON AFRICAN AMERICAN 78 mL/min (90-120)
[2020-11-20] VITALS (35 sets, daily range): BP systolic 97–141; BP diastolic 57–81; BMI 31.8; BMI 33.0
--- NOTE | 2020-11-20 08:16 | NUR ---
0645 CAVL AND ARTERIAL LINE PLACED BY ANESTHESIA, SCD AND HOSE PLACED POST OP ON LEFT LEG, RIGHT LEG WRAPPED, RADHA.
[2020-11-20 13:32] LABS: HEMATOCRIT 42.2 % (42.0-54.0); HEMOGLOBIN 14.3 g/dL (13.5-17.5); MCH 31.7 pg (26.0-34.0); MCHC 33.8 g/dL (31.0-37.0); MCV 93.8 fL (80.0-100.0); MEAN PLATELET VOLUME 8.5 fL (7.4-10.4); PLATELET COUNT 177 10x3/uL (130-400); RDW 13.3 % (11.5-14.5); WBC 22.1 10x3/uL (4.8-10.8)
[2020-11-20 13:34] LABS: INR 1.4 (0.85-1.17); PROTIME 15.9 SECONDS (11.6-15.0)
[2020-11-20 13:41] LABS: ANION GAP 9.2 mmol/L (8-16); BILIRUBIN - TOTAL 0.53 mg/dL (0.2-1.3); CALCIUM 7.4 mg/dL (8.5-10.1); CARBON DIOXIDE 28.3 mmol/L (21.0-32.0); CREATININE - SERUM 1.1 mg/dL (0.6-1.3); POTASSIUM - SERUM 4.5 mmol/L (3.5-5.1); PROTEIN - SERUM 5.3 g/dL (6.4-8.2)
[2020-11-20 13:49] LABS: LYMPHOCYTES 20 % (15-50); NEUTROPHILS 80 % (40-80); PLATELET ESTIMATE NORMAL
--- NOTE | 2020-11-20 14:53 | NUR ---
PT RECIEVED FROM OR 1235 SEDATED FROM SURGERY, ETT SECURED AND PLACED ON VENT BY RT, MIDSTERNAL DRESSING CDI, SUBSTERNAL CTX2 Y'D TOGETHER 20CM SUCTION NO AIR LEAK, CATRACHO DRAIN COMPRESSED WITH BLOODY DRAINAGE, 70ML EMPTIED, TPM V WIRE ATTACHED TO TPM, TPM OFF, DRESSING CDI, R IJ CVL DRESSING CDI, SEE IV FLOWSHEET, COLÓN CATHETER DRAININGYELLOW URINE, RLE HARVEST SITES CDI WITH COBAN GROIN TO ANKLE, LLE TEDS/SCDS IN PLACE ABGS REVEIWED BY DR WELLS, CALCIUM TREATED DR WELLS IN ROOM, ORDERS FOR 250 BOLUS OVER AN HOUR GIVEN FROM EXISTING IV FLUID BAG FAMILY AT BEDSIDE AND DENY ALL QUESTIONS
--- NOTE | 2020-11-20 16:49 | NUR ---
ABGS NIF AND VITAL CALLED TO DR WELLS, ORDERS TO TREAT CALCIUM AND EXTUBATE
--- NOTE | 2020-11-20 16:57 | NUR ---
EXTUBATED AND RESTRAINTS REMOVED 1654
--- NOTE | 2020-11-20 17:14 | NUR ---
PT EDUCATED ON COUGH/DEEP BREATHING, SPLINTING WITH PILLOW AND USING IS
--- NOTE | 2020-11-20 19:20 | NUR ---
REPORT REC'D AND CARE ASSUMED, PT RESTING QUIETLY IN BED, O2 @ 2 LITERS VIA NC, PT AWAKE, ALERT, AND ORIENTED X 4, RIGHT RADIAL BEV LEVELED AND ZEROED WITH RETURN OF APPROPRIATE WAVEFORM, MIDSTERNAL INCISION, WELL APPROXIMATED, CDI, RIJ CVL SEE FLOWSHEET FOR GTTS AND IV FLUIDS, SUBSTERNAL DRSG CDI TO CT AND LEFT CATRACHO DRAIN, CATRACHO DRAIN COMPRESSED WITH SANGUINOUS DRAINAGE, SCANT AMOUNT OF OUTPUT FROM CT,RIGHT LEG WITH COBAN DRSG CDI TO OPERATIVE LEG, SCDS AND WALTER IN TACT, ICE CHIPS PROVIDED ON REQUEST, CALL LIGHT IN REACH.
--- NOTE | 2020-11-20 20:05 | NUR ---
AT , UPDATE PROVIDED AND QUESTIONS ANSWERED.
[2020-11-21] VITALS (24 sets, daily range): BP systolic 102–162; BP diastolic 60–95; Ht 172.7 cm; Wt 98.2 kg
--- NOTE | 2020-11-21 00:15 | NUR ---
PT ASSISTED TO DANGLE AT BS FOR 10 MINUTES, TOLERATED WELL, BP STABLE, ASSISTED BACK TO BED AFTER 10MINUTES AND REPOSITIONED FOR COMFORT, PT DENIES FURTHER NEEDS.
--- NOTE | 2020-11-21 02:48 | NUR ---
PT REQUESTING PAIN MEDICATION, RATING PAIN "7" ON 0-10 PAIN SCALE, PERCOCET 10/325 GIVEN FOR PAIN CONTROL, PT DENIES FURTHER NEEDS.
--- NOTE | 2020-11-21 07:31 | OP ---
PATIENT NAME: MARILYN BAUMAN MEDICAL RECORD: [id number] :46 LOCATION:D.[facility] D.CV08 ADMISSION DATE:11/20/20 SURGEON: TRISTAN WELLS MD DATE OF OPERATION: 11/20/2020 SURGEON: Tristan Wells MD. PROCEDURES PERFORMED: 1. Coronary artery bypass graft times 5 (left internal mammary artery to LAD, reverse saphenous vein graft from aorta to second diagonal, aorta to first obtuse marginal sequential and to second obtuse marginal, aorta to right coronary artery). 2. Endoscopic saphenous vein harvest. PREOPERATIVE DIAGNOSIS: Coronary artery disease. POSTOPERATIVE DIAGNOSIS: Coronary artery disease. ANESTHESIA: General endotracheal anesthesia. ESTIMATED BLOOD LOSS: Total cardiopulmonary bypass with Cell Saver retransfusion. COMPLICATIONS: None. CONDITION: Stable. DISPOSITION: CV ICU. OPERATIVE FINDINGS: 1. Good quality greater saphenous vein from the right lower extremity. 2. LAD 2.0 mm good quality internal mammary with good Doppler signal after anastomosis and after reversal of heparin. 3. Small second diagonal 1.0 mm. The probe would not pass proximally. After anastomosis relatively poor outflow, due to the small, thin-walled vessel, I doubt this is a good long-term patent vessel. 4. First obtuse marginal 1.5 mm [id number] sequential to the second obtuse marginal graft 1.5 mm. 5. Right coronary 2.5 mm. Severe distal PDA disease throughout. OPERATIVE INDICATION: Coronary artery disease. DESCRIPTION OF PROCEDURE: The patient was brought to the operating suite. General anesthesia was obtained. The patient was prepped and draped. Greater saphenous vein was harvested endoscopically from the right lower extremity. Side branches were divided with electrocautery. The vessel was divided proximally and distally and removed. The side branches were tied and thin spots were oversewn. The leg was irrigated and closed later. Sternotomy was made. Sternum was divided with a saw. Left hemisternum was elevated and the left pleural cavity was entered. Left internal mammary artery and vein was taken down as a pedicle graft. Sternal retractor was placed. Pericardium was opened. Heparin was given. OPERATIVE REPORT [id number] MARILYN BAUMAN Aorta was cannulated. Dual stage venous cannula was inserted. Activated clotting time was appropriately elevated. The internal mammary was clipped distally, made ready for anastomosis. The patient was placed on cardiopulmonary bypass. Sites for distal anastomoses were selected. Antegrade cardioplegic cannula was inserted. The patient was cooled. Crossclamp was placed. Cardioplegia was given antegrade and this was repeated at 15- to 20-minute intervals during the crossclamp time. Distal anastomoses were performed in standard technique. Proximal anastomosis with single cross-clamp technique. The aortic root was de-aired after removing the crossclamp and then the proximal anastomoses were tied down. Flow was restored. Proximal and distal anastomotic sites inspected for bleeding. A single 7-0 on the right graft, 6-0 in one of the proximals and hemostasis was obtained. The patient was hemostatic, fully rewarmed, weaned from cardiopulmonary bypass and was stable. This patient was decannulated. The cannula sites were oversewn. Protamine was given. Thorough irrigation was undertaken. The grafts lay appropriately. The left chest was evacuated and irrigated. A drain was placed in the mediastinum and left pleural cavity. Pericardial fat was loosely reapproximated. Ventricular pacing wire was placed. The internal mammary harvest site was hemostatic. Sternum was closed with wires. Fascia was closed. Subcutaneous tissue was closed. Skin was closed. Dermabond was placed. The needle and sponge counts were reported as correct. The patient was taken to the ICU in stable condition. TRANSINT:[id number] Voice Confirmation ID: [id number] DOCUMENT ID: [id number] TRISTAN WELLS MD at 0731 CC: YOEL ZABALA M.D. and JOAQUINA BACA MD [id number] DICTATION DATE: 11/20/20 141 [facility]: 11/20/20 2201 ADM IN [facility] [address] [id number]
[2020-11-21 08:13] LABS: HEMATOCRIT 41.7 % (42.0-54.0); HEMOGLOBIN 14.2 g/dL (13.5-17.5); MCH 31.9 pg (26.0-34.0); MCHC 34.1 g/dL (31.0-37.0); MCV 93.6 fL (80.0-100.0); MEAN PLATELET VOLUME 8.6 fL (7.4-10.4); RBC 4.46 10x6/uL (4.20-6.10); RDW 13.2 % (11.5-14.5); WBC 17.4 10x3/uL (4.8-10.8)
[2020-11-21 08:25] LABS: ALBUMIN 3.4 g/dL (3.4-5.0); ANION GAP 13.9 mmol/L (8-16); BILIRUBIN - TOTAL 0.58 mg/dL (0.2-1.3); CALCIUM 8.3 mg/dL (8.5-10.1); CARBON DIOXIDE 23.9 mmol/L (21.0-32.0); CREATININE - SERUM 1.3 mg/dL (0.6-1.3); POTASSIUM - SERUM 4.8 mmol/L (3.5-5.1); PROTEIN - SERUM 6.3 g/dL (6.4-8.2)
--- NOTE | 2020-11-21 10:13 | NUR ---
0930: R RADIAL ART LINE DC'D. MANUAL PRESSURE HELD X 3 MIN. SITE DRESSED WITH 2X2 AND TEGADERM. 1015: DR. WELLS HERE. MEDISTINAL CHEST TUBES REMOVED.
--- NOTE | 2020-11-21 11:00 | NUR ---
REPORT RECEIVED FROM SAMMY ZAMAN AND PATIENT CARE ASSUMED. PATIENT LAYING IN BED ON BACK AWAKE, ALERT AND ORIENTED X 4. VISITING WITH AT BS. VSS. PATIENT DENIES ANY NEEDS OR PAIN. WILL CONTINUE WITH PLAN OF CARE. SR UP X 2 BED IN LOW POSIITION AND CALL LIGHT IN REACH.
[2020-11-22] VITALS (23 sets, daily range): BP systolic 112–158; BP diastolic 57–100
[2020-11-22 06:00] LABS: HEMATOCRIT 39.3 % (42.0-54.0); HEMOGLOBIN 13.6 g/dL (13.5-17.5); MCH 32.5 pg (26.0-34.0); MCHC 34.6 g/dL (31.0-37.0); MEAN PLATELET VOLUME 8.9 fL (7.4-10.4); RBC 4.18 10x6/uL (4.20-6.10); WBC 19.7 10x3/uL (4.8-10.8)
[2020-11-22 06:15] LABS: ALBUMIN 3.2 g/dL (3.4-5.0); ALKALINE PHOSPHATASE 62 U/L (30-120); ALT (SGPT) 24 U/L (10-68); CALC OSMOLALITY 276 mosm/kg (275-300); CALCIUM 8.4 mg/dL (8.5-10.1); CARBON DIOXIDE 28.7 mmol/L (21.0-32.0); CHLORIDE - SERUM 101 mmol/L (98-107); GLUCOSE 164 mg/dL (74-106); POTASSIUM - SERUM 4.2 mmol/L (3.5-5.1); PROTEIN - SERUM 6.5 g/dL (6.4-8.2); SODIUM 135 mmol/L (136-145); UREA NITROGEN 20 mg/dL (7-18); eGFR NON AFRICAN AMERICAN 78 mL/min (90-120)
[2020-11-23] VITALS (21 sets, daily range): BP systolic 104–147; BP diastolic 44–87
[2020-11-23 04:30] LABS: HEMATOCRIT 34.9 % (42.0-54.0); HEMOGLOBIN 11.9 g/dL (13.5-17.5); MCH 32.1 pg (26.0-34.0); MCHC 34.2 g/dL (31.0-37.0); MCV 93.7 fL (80.0-100.0); MEAN PLATELET VOLUME 8.7 fL (7.4-10.4); RBC 3.72 10x6/uL (4.20-6.10)
[2020-11-23 04:50] LABS: ALBUMIN 2.9 g/dL (3.4-5.0); ALKALINE PHOSPHATASE 65 U/L (30-120); ALT (SGPT) 19 U/L (10-68); CALC OSMOLALITY 277 mosm/kg (275-300); CALCIUM 8.5 mg/dL (8.5-10.1); CARBON DIOXIDE 33.4 mmol/L (21.0-32.0); CHLORIDE - SERUM 101 mmol/L (98-107); GLUCOSE 127 mg/dL (74-106); PROTEIN - SERUM 6.4 g/dL (6.4-8.2); SODIUM 137 mmol/L (136-145); UREA NITROGEN 17 mg/dL (7-18); eGFR NON AFRICAN AMERICAN 78 mL/min (90-120)
[2020-11-23 04:51] LABS: POTASSIUM - SERUM 3.5 mmol/L (3.5-5.1)
--- NOTE | 2020-11-23 16:11 | NUR ---
1130: DR. WELLS HERE. DISCUSSED CONFUSION WITH HIM. ORDERS REC'D TO GIVE 0.5MG ATIVAN PO. 1215: HERE. DISCUSSED CONFUSION AND PLAN TO ALLOW HIM TO SLEEP THIS AFTERNOON. 1330: CONFUSION APPEARS TO BE WORSE TO THE POINT OF PARANOIA. WALKED OUT TO NURSES STATION ASKING WHAT WAS GOING ON. ASSISTED BACK TO HIS ROOM AND HE SEATED HIMSELF BACK IN HIS CHAIR. NOTIFIED AND ASKED IF SHE WOULD COME AND SIT AT BEDSIDE. 1415: HERE. 1530: DR. WELLS NOTIFIED OF WORSENING CONFUSION AFTER ATIVAN. NEW ORDERS REC'D. 1535: ASSISTED BACK TO BED. STATING HE WAS HURTING. WHEN I ATTEMPTED TO GIVE HIM A PAIN PILL HE REFUSED TO TAKE IT. HIS ASKED ME IF I WOULD REFRAIN FROM GIVING HIM THE IV ATIVAN SINCE HE IS CALMER. BED ALARM ON AND AT BEDSIDE.
--- NOTE | 2020-11-23 18:38 | NUR ---
182: REMAINS AT BEDSIDE. PATIENT REMAINS CONFUSED BUT NO LONGER PARANOID.
--- NOTE | 2020-11-23 18:54 | NUR ---
1200: IV STARTED R FOREARM WITH 20G ON 1ST ATTEMPT. 1210: R IJ DC'D.
[2020-11-24] VITALS (17 sets, daily range): BP systolic 112–159; BP diastolic 65–101
--- NOTE | 2020-11-24 00:51 | NUR ---
THE PATIENT IS BECOMING MORE CONFUSED AND PARANOID CLAIMING HE WAS THE SUBJECT OF AN EXPERIMENTAL PROCEDURE, AND THAT HE HAS NO PROOF HE'S AT [facility]. THE PATIENT REFUSES TO WEAR VITAL SIGN EQUIPMENT, HE ALSO RIPPED OFF HIS CATRACHO DRAIN DRESSING. THE DRAIN SITE WAS CLEANED AND A NEW DRESSING WAS APPLIED, HIS EPICARDIAL PACER WIRES ARE STILL INTACT AND COVERED WELL. THE PATIENT WAS MOVED FROM ROOM CV08 TO CV06 FOR CLOSER OBSERVATION.
[2020-11-24 04:44] LABS: HEMATOCRIT 32.5 % (42.0-54.0); HEMOGLOBIN 11.4 g/dL (13.5-17.5); MCH 32.4 pg (26.0-34.0); MCV 92.6 fL (80.0-100.0); RBC 3.51 10x6/uL (4.20-6.10); RDW 12.8 % (11.5-14.5); WBC 9.4 10x3/uL (4.8-10.8)
[2020-11-24 05:02] LABS: ALBUMIN 2.8 g/dL (3.4-5.0); ALKALINE PHOSPHATASE 75 U/L (30-120); ALT (SGPT) 22 U/L (10-68); BILIRUBIN - TOTAL 0.65 mg/dL (0.2-1.3); CALC OSMOLALITY 281 mosm/kg (275-300); CALCIUM 8.6 mg/dL (8.5-10.1); CHLORIDE - SERUM 101 mmol/L (98-107); GLUCOSE 117 mg/dL (74-106); POTASSIUM - SERUM 3.9 mmol/L (3.5-5.1); PROTEIN - SERUM 6.3 g/dL (6.4-8.2); SODIUM 139 mmol/L (136-145); UREA NITROGEN 20 mg/dL (7-18); eGFR NON AFRICAN AMERICAN 78 mL/min (90-120)
--- NOTE | 2020-11-24 08:00 | NUR ---
DR WELLS HERE SEEING PATIENT
--- NOTE | 2020-11-24 08:25 | NUR ---
ASSISTED PT UP TO TOILET, MODERATE BM NOTED, PT BACK IN RECLINER, TOLERATED WELL, CALL LIGHT IN REACH, WILL MONITOR
--- NOTE | 2020-11-24 13:17 | NUR ---
Nutrition Follow-up: POD 4 CABG. Confused. Poor PO intake reported. Diet: Diabetic PO intake: 33% avg x 3 meals yesterday Wt: 214# (11/24) Last BM: 11/24 Labs noted: Glu 117, Alb 2.8 Meds reviewed -Encourage PO intake and honor food preferences within diet restrictions. -Offer nutrition supplements. -Monitor wt. -RD will follow up within 2-3 days.
--- NOTE | 2020-11-24 13:40 | NUR ---
pt ambulating in halls with physcial therapy
--- NOTE | 2020-11-24 13:42 | NUR ---
A BIT OF A SWAY AND LOSING HIS BALANCE 2 TIMES WALKED 500 FT MIN ASSIT
[2020-11-25] VITALS (16 sets, daily range): BP systolic 117–145; BP diastolic 64–86
[2020-11-25 04:28] LABS: HEMATOCRIT 34.2 % (42.0-54.0); HEMOGLOBIN 11.9 g/dL (13.5-17.5); MCH 32.4 pg (26.0-34.0); MCHC 34.8 g/dL (31.0-37.0); MEAN PLATELET VOLUME 8.6 fL (7.4-10.4); RBC 3.68 10x6/uL (4.20-6.10); RDW 12.6 % (11.5-14.5); WBC 8.5 10x3/uL (4.8-10.8)
[2020-11-25 04:48] LABS: ALBUMIN 2.8 g/dL (3.4-5.0); ALKALINE PHOSPHATASE 89 U/L (30-120); ALT (SGPT) 27 U/L (10-68); BILIRUBIN - TOTAL 0.41 mg/dL (0.2-1.3); CALC OSMOLALITY 283 mosm/kg (275-300); CALCIUM 8.4 mg/dL (8.5-10.1); CARBON DIOXIDE 29.4 mmol/L (21.0-32.0); CHLORIDE - SERUM 104 mmol/L (98-107); GLUCOSE 120 mg/dL (74-106); MAGNESIUM - SERUM 2.1 mg/dL (1.8-2.4); PHOSPHOROUS 3.9 mg/dL (2.5-4.9); POTASSIUM - SERUM 3.6 mmol/L (3.5-5.1); PROTEIN - SERUM 6.6 g/dL (6.4-8.2); SODIUM 141 mmol/L (136-145); UREA NITROGEN 18 mg/dL (7-18); eGFR NON AFRICAN AMERICAN 78 mL/min (90-120)
--- NOTE | 2020-11-25 07:00 | NUR ---
RECEIVED BEDSIDE REPORT ON PATIENT AND ASSUMED CARE. PATIENT SITTING UP IN BED, TALKING ON CELL PHONE. IV 20 GA TO RIGHT NSL, CM - SR RATE OF 88, RR - 18, BBS - CLEAR AND EQUAL, SPO2 - 95% ON RA. CATRACHO DRAIN WITH 5 ML OF SEROUS FLUID NOTED. DRESSING C/D/I. WALTER HOSE IN PLACE. HEAD TO TOE ASSESSMENT COMPLETED.
--- NOTE | 2020-11-25 07:30 | NUR ---
PATIENT ASSISTED TO BEDSIDE CHAIR. VSS.
--- NOTE | 2020-11-25 08:13 | TEE ---
PATIENT:MARILYN BAUMAN MEDICAL RECORD: [id number] LOCATION:[place] [address] AGE OF PATIENT: 70 ADMISSION DATE: 11/20/20 SEX: M REFERRING PHYSICIAN: INTERPRETING PHYSICIAN: EMMANUEL QUEZADA MD TRANSESOPHAGEAL ECHOCARDIOGRAM Date: 11/20/20 SENG CHARGE Y INDICATIONS: CABG PREMEDICATIONS: PATIENT'S RESPONSE PROCEDURE DOPPLER MEASUREMENTS: LVIT LA 4.3 PA RA LVOT RVOT Asc. Ao AV Gradient Peak AV Mean AV Area MV Gradient Peak MV Mean MV Area INTERPRETATION: Doppler: 2-D: COLOR FLOW DOPPLER NORMAL SALINE STUDY: MISCELLANOUS: DIAGNOSIS: PLAN: Crystal Slicer:3 Dr. Davis Lay Out Machine Operator: Jamila EL COMMENTS: DATE OF SERVICE: 11/21/2020 PROCEDURE: Intraoperative SENG. Preop is normal wall motion, normal wall thickening. Estimated EF 50% to 55%. Aortic valve is tricuspid, good valve excursion. Left atrium appears normal. Mitral valve appears normal. Trivial MR. Postop gives thickening of all wall segments and normal LV function 50% or TRANSESOPHAGEAL ECHOCARDIOGRAM REPORT [id number] MARILYN BAUMAN better. Aortic valve is tricuspid, good valve excursion. Left atrium appears normal. Mitral valve appears normal. Trivial MR. TRANSINT:[id number] Voice Confirmation ID: [id number] DOCUMENT ID: [id number] at [id number] CC: [id number] DICTATION DATE: 11/21/20 0908 PARTS PERSON: 11/21/20 1219 ADM IN [facility] [address] [place] [address]
--- NOTE | 2020-11-25 08:36 | NUR ---
PATIENT ATE 100% OF BREAKFAST, MORNING MEDS PER MAR. ASSSITED TO RESTROOM. VSS.
[2020-11-25] MEDS ORDERED: PLAVIX75 MG PO (09:31)
[2020-11-25] MEDS ORDERED: COZAAR25 MG PO (09:32)
[2020-11-25] MEDS ORDERED: LOPRESSOR25 MG PO (09:33)
--- NOTE | 2020-11-25 09:59 | NUR ---
PATIENT AT BEDSIDE, UPDATED AND QUESTIONS ANSWERED.
--- NOTE | 2020-11-25 10:17 | NUR ---
WALKED 500 FT CGA ASSIT
--- NOTE | 2020-11-25 10:38 | NUR ---
DR. KEENAN AT ROOM UPDATED AND EXAMINES PATIENT.
--- NOTE | 2020-11-25 11:00 | NUR ---
REASSESSMETN COMPLETED. VSS. NO NEEDS AT THIS TIME. AT BEDSIDE.
--- NOTE | 2020-11-25 13:51 | NUR ---
PATIENT ASSISTED BACK TO BED, LEADITE WORKER AT ROOM FOR ECHO. DR. WELLS TO PULL CATRACHO DRAIN AND TPM WIRES.
[2020-11-25] MEDS ORDERED: PERCOCET 5-3251 TAB PO (13:52)
--- NOTE | 2020-11-25 14:50 | NUR ---
PATIENT GIVEN DISCHARGE INSTRUCTIONS, PRESENT, VERBALIZES UNDERSTANDING. IV DC'D. DISCHARGED HOME.
--- NOTE | 2020-11-26 15:33 | MORECARE ---
CASE MANAGEMENT DISCHARGE SUMMARY PATIENT: MARILYN BAUMAN UNIT: [id number] ADM DATE: 11/20/20 AGE: 70 : 48 SEX: M ROOM/BED: [facility] AUTHOR: JOSE,DOC PHYSICIAN: REFERRING PHYSICIAN: JOVANI WELLS MD DATE OF SERVICE: 11/26/20 Case Management Discharge Planning Summary DCP REVIEW SUMMARY ANTICIPATED D/C DATE: 11/25/2020 EXPECTED LOS : 5 CASE STATUS: DCP Initiated INITIAL REVIEW: 11/14/2020 INITIAL REVIEWER: Karla Hall FINAL DISCHARGE DISPOSITION: : FINAL REVIEWER: FINAL REVIEW DATE: DCP Focus Questions & Answers QUESTION: ANSWER : PATIENT: MARILYN BAUMAN ENCOUNTER: [id number] MEDICAL RECORD#: [id number] ADMISSION DATE: 11/20/2020 DISCHARGE DATE: 11/25/2020 ATTENDING MD: JOVANI MCRAE : AGE: 70 MARITAL STATUS: S DC PLAN ID: [id number] FACILITY: PRINTED ON: 11/26/20 15:33 CT All edits/amendments must be made on the electronic document DICTATION DATE: 11/26/20 153 NEUROPATHOLOGIST: ELLI 11/26/20 153 RPT#: [id number] DC DATE:11/25/20 STATUS: DIS IN [address] [place] [address] END OF REPORT
--- NOTE | 2020-11-26 15:49 | MORECARE ---
CASE MANAGEMENT DISCHARGE SUMMARY PATIENT: MARILYN AVELAR UNIT: [id number] ADM DATE: 11/20/20 AGE: 70 : 48 SEX: M [facility] AUTHOR: JOSEDOC PHYSICIAN: REFERRING PHYSICIAN: JOVANI WELLS MD DATE OF SERVICE: 11/26/20 Case Management Discharge Planning Summary DCP REVIEW SUMMARY ANTICIPATED D/C DATE: 11/25/2020 EXPECTED LOS : 5 CASE STATUS: DCP Initiated INITIAL REVIEW: 11/14/2020 INITIAL REVIEWER: Karla Hall FINAL DISCHARGE DISPOSITION: : FINAL REVIEWER: FINAL REVIEW DATE: DCP Focus Questions & Answers DCP Screen QUESTION: ANSWER High Risk Factors: : None Walking limitation: Patient stated self rated walking limitation present? : No Age: : 65 - 77 Prior living environment: : Lives with others Disability ranking: : Grade 1: No significant disability DCP Evaluation QUESTION: ANSWER Patient's current cognitive status: : *Oriented to person, place, situation, time and present Family / Caregiver's ability to cope with chronic illness: : a. Adequate (ability to meet patient's medical needs, ensures patient attends medical appts.) Patient and/or caregiver agree upon recommended discharge plan? : Yes Patient's ability to cope with chronic illness : a. Adequate (0-3 ED visits in 6 mos., adequate financial resources, attends scheduled appts.) Patient gives permission to discuss discharge plans with: (name, relationship and number) : Angiesolo Avelar, Spouse Functional screen assessment: : Basic needs can adequately be met by self Does the patient have the ability to pay for or attain post discharge needs / services? : Yes Physical Status: : Independent with ADL's Family / Caregiver's ability to cope with chronic illness: : a. Adequate (ability to meet patient's medical needs, ensures patient attends medical appts.) Is there a likelihood that the patient will require additional services to return to the preadmission environment? : No Equipment needed for post hospitalization: : None Living Arrangements: : Home with Spouse/Significant Other Patient with capacity for self-care or can be cared for in same environment as prior to hospitalization? : Yes Results of this evaluation have been discussed with: : Patient Results of this evaluation have been discussed with: : Spouse Baseline cognitive status: : *Oriented to person, place, situation, time and present Preadmission facility can/cannot provide post hospital level of care needs: : Can - at same level of care as preadmission Physical environment modification needed / anticipated for discharge: : No Medication Management: : Patient states can afford medications Planned post hospital services available for patient? : N/A Pharmacy name(s): : [facility] Planned post hospital services covered by insurance plan? : N/A Does Patient have transportation to get home and to follow-up medical appointments when discharged from the hospital? : Yes Would patient like to participate in any Care Coordination programs (if applicable): : Not applicable Other Care Coordination programs/comments: : Home, No needs Does the patient have electricity at home? : Yes Does the patient have running water in their house? : Yes Equipment in use: : None Mental health screen: : No mental health history Psychosocial status: : Independent adult (65+) Abuse/Neglect: : None Resources / Services in place: : None DCP Re-evaluation QUESTION: ANSWER Would patient like to participate in any Care Coordination programs (if applicable): : Not applicable PATIENT: MARILYN AVELAR ENCOUNTER: [id number] MEDICAL RECORD#: [id number] ADMISSION DATE: 11/20/2020 DISCHARGE DATE: 11/25/2020 ATTENDING MD: JOVANI MCRAE : AGE: 70 MARITAL STATUS: S DC PLAN ID: [id number] FACILITY: PRINTED ON: 11/26/20 15:49 CT All edits/amendments must be made on the electronic document DICTATION DATE: 11/26/20 1549 WOOD FLOORING SPECIALIST: ELLI 11/26/20 1549 RPT#: [id number] DC DATE:11/25/20 STATUS: DIS IN [address] [place] [address] END OF REPORT
--- NOTE | 2020-11-26 16:05 | MORECARE ---
CASE MANAGEMENT DISCHARGE SUMMARY PATIENT: MARILYN AVELAR UNIT: [id number] ADM DATE: 11/20/20 AGE: 70 : 48 SEX: M ROOM/BED: D.06 AUTHOR: JOSE,DOC PHYSICIAN: REFERRING PHYSICIAN: JOVANI WELLS MD DATE OF SERVICE: 11/26/20 Case Management Discharge Planning Summary COMMENTS ENTERED DATE: 11/26/20 15:47 CT COMMENT TYPE: Discharge Planning REVIEWER: Karla Hall Late entry for 11/25/2020 13:28 After obtaining consent, CM met with patient and his , Jacquie Mcginnis, to discuss discharge planning / needs. CM discussed availability of home health, rehab services, and medical equipment. Denies need for DME or other post acute services. Patient states he plans to discharge to home. States home environment is safe. States his will transport him home upon discharge. His PCP is Dr. Mata in [place]. He uses [facility]. Denies any discharge planning needs at this time. CM explained and served DC [facility]. Copy in chart. DCP REVIEW SUMMARY ANTICIPATED D/C DATE: 11/25/2020 EXPECTED LOS : 5 CASE STATUS: DCP Initiated INITIAL REVIEW: 11/14/2020 INITIAL REVIEWER: Karla Hall FINAL DISCHARGE DISPOSITION: : FINAL REVIEWER: FINAL REVIEW DATE: DCP Focus Questions & Answers DCP Screen QUESTION: ANSWER High Risk Factors: : None Walking limitation: Patient stated self rated walking limitation present? : No Age: : 65 - 77 Prior living environment: : Lives with others Disability ranking: : Grade 1: No significant disability DCP Evaluation QUESTION: ANSWER Patient's current cognitive status: : *Oriented to person, place, situation, time and present Family / Caregiver's ability to cope with chronic illness: : a. Adequate (ability to meet patient's medical needs, ensures patient attends medical appts.) Patient and/or caregiver agree upon recommended discharge plan? : Yes Patient's ability to cope with chronic illness : a. Adequate (0-3 ED visits in 6 mos., adequate financial resources, attends scheduled appts.) Patient gives permission to discuss discharge plans with: (name, relationship and number) : Jacquie Avelar, Spouse Functional screen assessment: : Basic needs can adequately be met by self Does the patient have the ability to pay for or attain post discharge needs / services? : Yes Physical Status: : Independent with ADL's Family / Caregiver's ability to cope with chronic illness: : a. Adequate (ability to meet patient's medical needs, ensures patient attends medical appts.) Is there a likelihood that the patient will require additional services to return to the preadmission environment? : No Equipment needed for post hospitalization: : None Living Arrangements: : Home with Spouse/Significant Other Patient with capacity for self-care or can be cared for in same environment as prior to hospitalization? : Yes Results of this evaluation have been discussed with: : Patient Results of this evaluation have been discussed with: : Spouse Baseline cognitive status: : *Oriented to person, place, situation, time and present Preadmission facility can/cannot provide post hospital level of care needs: : Can - at same level of care as preadmission Physical environment modification needed / anticipated for discharge: : No Medication Management: : Patient states can afford medications Planned post hospital services available for patient? : N/A Pharmacy name(s): : [facility] Planned post hospital services covered by insurance plan? : N/A Does Patient have transportation to get home and to follow-up medical appointments when discharged from the hospital? : Yes Would patient like to participate in any Care Coordination programs (if applicable): : Not applicable Other Care Coordination programs/comments: : Home, No needs Does the patient have electricity at home? : Yes Does the patient have running water in their house? : Yes Equipment in use: : None Mental health screen: : No mental health history Psychosocial status: : Independent adult (65+) Abuse/Neglect: : None Resources / Services in place: : None DCP Re-evaluation QUESTION: ANSWER Would patient like to participate in any Care Coordination programs (if applicable): : Not applicable PATIENT: MARILYN AVELAR ENCOUNTER: [id number] MEDICAL RECORD#: [id number] ADMISSION DATE: 11/20/2020 DISCHARGE DATE: 11/25/2020 ATTENDING MD: JOVANI MCRAE : AGE: 70 MARITAL STATUS: S DC PLAN ID: [id number] FACILITY: [facility] PRINTED ON: 11/26/20 16:05 CT All edits/amendments must be made on the electronic document DICTATION DATE: 11/26/20 1605 BLANKBOOK FORWARDER: ELLI 11/26/20 1605 RPT#: [id number] DC DATE:11/25/20 STATUS: DIS IN [facility] [address] [place] [address] END OF REPORT
== END 2020-11-25 15:00 | disposition home or self-care (01) | DRG 236 ==
LOC: D.SDCHOLD 13:00 → D.CVICU 11-20 05:28 → D.SDCHOLD 11-20 07:30 → D.CVICU 11-20 11:53 → D.SDCHOLD 11-20 13:00 → D.CVICU 11-24 00:29
PROVIDERS: ADMIT Thoracic Surgery (Cardiothoracic Vascular Surgery); ATTEND Thoracic Surgery (Cardiothoracic Vascular Surgery)
PROC: 02100Z9 Bypass Coronary Artery, One Artery from Left Internal Mammary, Open Approach (ICD-10-PCS; 2020-11-20)
PROC: 06BP4ZZ Excision of Right Saphenous Vein, Percutaneous Endoscopic Approach (ICD-10-PCS; 2020-11-20)
PROC: 5A1221Z Performance of Cardiac Output, Continuous (ICD-10-PCS; 2020-11-20)
PROC: B245ZZ4 Ultrasonography of Left Heart, Transesophageal (ICD-10-PCS; 2020-11-20)
PROC: 021309W Bypass Coronary Artery, Four or More Arteries from Aorta with Autologous Venous Tissue, Open Approach (ICD-10-PCS; principal; 2020-11-20 07:30)
DX: I25.10 Atherosclerotic heart disease of native coronary artery without angina pectoris (principal); J98.11 Atelectasis; J90 Pleural effusion, not elsewhere classified; I10 Essential (primary) hypertension; R73.9 Hyperglycemia, unspecified; E78.5 Hyperlipidemia, unspecified; M19.90 Unspecified osteoarthritis, unspecified site; F32.9 Major depressive disorder, single episode, unspecified

== ENCOUNTER → 2020-12-17 08:11 | Outpatient (CLI) | payer MEDICARE ==
[2020-11-21 12:42] VITALS: BMI 33.6
[~2020-12-17 08:11] MED LIST changes: +CIALIS PO; +CLARITIN 10 MG10 MG PO; +COZAAR25 MG PO; +LOPRESSOR25 MG PO; +MERIBIN5 MG PO; +MULTI-DAY VITAM1 TAB PO; +NIACIN500 MG PO; +OSTEO BI-FLEX1 EAC1 PO; +PERCOCET 5-3251 TAB PO
[2020-12-17 08:41] LABS: BASOPHILS 0.8 % (0-2); EOSINOPHILS 7.2 % (0-7); HEMATOCRIT 40.1 % (42.0-54.0); HEMOGLOBIN 13.5 g/dL (13.5-17.5); LYMPHOCYTES 23.6 % (15-50); MCH 31.5 pg (26.0-34.0); MCHC 33.7 g/dL (31.0-37.0); MCV 93.3 fL (80.0-100.0); MONOCYTES 9.4 % (2-11); RDW 13.5 % (11.5-14.5); WBC 5.7 10x3/uL (4.8-10.8)
[2020-12-17 08:57] LABS: PLATELET COUNT 277 10x3/uL (130-400)
[2020-12-17 08:59] LABS: ALBUMIN 4.1 g/dL (3.4-5.0); ALKALINE PHOSPHATASE 170 U/L (30-120); ALT (SGPT) 24 U/L (10-68); CALC OSMOLALITY 283 mosm/kg (275-300); CALCIUM 9.1 mg/dL (8.5-10.1); CARBON DIOXIDE 27.6 mmol/L (21.0-32.0); CHLORIDE - SERUM 103 mmol/L (98-107); GLUCOSE 99 mg/dL (74-106); POTASSIUM - SERUM 4.4 mmol/L (3.5-5.1); PROTEIN - SERUM 8.1 g/dL (6.4-8.2); SODIUM 139 mmol/L (136-145); UREA NITROGEN 28 mg/dL (7-18); eGFR NON AFRICAN AMERICAN 78 mL/min (90-120)
== END | disposition home or self-care (01) ==
LOC: D.LAB 08:11
PROVIDERS: ATTEND Thoracic Surgery (Cardiothoracic Vascular Surgery)
DX: Z48.812 Encounter for surgical aftercare following surgery on the circulatory system (principal)